=== PATIENT | female | born 1965 | race Caucasian/White ===

== ENCOUNTER 2024-12-31 22:09 | Emergency (ER) | payer BC, SELFPAY ==
--- OUTSIDE RECORDS SUMMARY | 2024-12-31 22:11 | XMS_ITS | Clinical Summary ---
Author Organization [facility] Address [address] [address] Phone Care Team Providers Care Software Configuration Specialist Name Role Phone Unavailable Primary Care Provider Unavailabl e Allergies No known active allergies Medications Alendronate Sodium (FOSAMAX OR) Take by mouth every seven days. 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 Gender Identity Not on file Sexual Orientation Not on file Last Filed Vital Signs Vital Sign Reading Time Taken Comments Blood Pressure 131/74 10/16/2020 12:20 PM TELEPHONE INSTALLER Pulse 77 10/16/2020 12:20 PM TELEPHONE INSTALLER Temperature 36.6 C (97.9 F) 10/16/2020 12:20 PM TELEPHONE INSTALLER Respiratory Rate 14 10/16/2020 12:20 PM TELEPHONE INSTALLER Oxygen Saturation 100% 10/16/2020 12:20 PM TELEPHONE INSTALLER Inhaled Oxygen Concentration - - Weight 49.9 kg (110 lb) 10/16/2020 12:20 PM TELEPHONE INSTALLER Height 160 cm (5' 3) 10/16/2020 12:20 PM TELEPHONE INSTALLER Body Mass Index 19.49 10/16/2020 12:20 PM TELEPHONE INSTALLER Plan of Treatment Health Maintenance Due Date Last Done Comments CT Colonography 1963 Cervical Cancer Screening 1963 Cologuard 1963 Colonoscopy 1963 Colorectal Cancer Screening 1963 FIT/FOBT 1963 Last pap w/ HPV Testing 1963 Last pap w/o HPV Testing 1963 MAMMO,SCREEN 1963 Sigmoidoscopy 1963 PERTUSSIS (Standing Order) 1982 TETANUS (Standing Order) 1982 Pneumococcal Vaccine: 50+ yr s (Standing Order) (1 of 1 - PCV) 2013 Shingrix (Zoster recombinant ) vaccine (Standing Order) (1 of 2) 2013 COVID-19 Vaccine (3 - 2023-2 5 season) 2024 11/13/2020, 10/16/2020 Influenza Vaccine Seasonal (Standing Order) (#1) 2024 RSV Vaccination (60+ yrs) (Abrysvo/Arexvy) (1 - 1-dose 75+ series) 2038 HPV Vaccine (Standing Order) Aged Out No longer eligible based on patient's age to complete this topic Hepatitis B Vaccine (Standin g Order) Aged Out No longer eligible b ased on patient's age to complete this topic Insurance lifeaction games CHOICE
--- OUTSIDE RECORDS SUMMARY | 2024-12-31 22:11 | XMS_ITS | Clinical Summary ---
Author Organization [facility] Address [address] [place] [id number] Care Team Providers Care Steam Trap Worker Name Role Phone Belem Butterfield MD Primary Care Provider Allergies No known active allergies Medications Calcium-Cholecal ciferol, D3, (CALCIUM 600 WITH VITAMIN D3) 600 mg(1,500mg) -400 unit cap Take by mouth. 0 10/18/2014 Active multivitamin (MVI) tablet Take 1 tablet by mouth once daily. 0 03/30/2017 Active Active Problems Problem Noted Date Diagnosed Date Adenomatous colon polyp 03/15/2015 Overview (04/25/2020): Colonoscopy 03/2015 polyp repeat in 5 years Colonoscopy 04/2020 normal, repeat in 5 years Disorder of bone and cartilage, unspecified 08/06 Overview (08/19/2007): Osteopenia 2000 Resolved Problems Problem Noted Date Diagnosed Date Resolved Date Acute myocardial infarction of other specified sites, episode of care unspecified 09/22/2011 09/22/2011 Assessment & Plan (09/22/2011 5:29 PM MEDICAL GENETICIST): error Immunizations Immunization Administration Dates Next Due AMB Influenza, IIV3 (Age >=3 years)(Flu Clinic O nly) 08/22/2008 AMB Influenza, IIV4 PF (=>6 mos Flulaval,Fluzone Fluarix)(Flu Clinic Only) 06/21/2020,06/15/2017 Influenza, IIV3 (Age >=3 years) 08/22/2008 Influenza, IIV4 06/07/2019,06/15/2017 MMR 06/16/2000 Td (Age >=7 Years) 07/06/2003 Tdap 05/17/2023,10/06/2012 Zoster (Shingrix-RZV, recombinant) 06/07/2019, Family History Medical History Relation Name Comments Osteoporosis Maternal Aunt Osteoporosis Maternal Grandmother Cancer Mother ovarian, diagno sed Cancer-breast No Family History Cancer-ovarian No Family History Relation Name Status Comments Maternal Aunt Maternal Grandmother Mother (Age 39) ovarian ca ncer Social History Tobacco Use Types Packs/Day Years Used Date Smoking Tobacco: Never Smokeless Tobacco: Never Tobacco Cessation:Counseling Given: Yes Alcohol Use Standard Drinks/Week Comments No 0 (1 standard drink = 0.6 oz pur e alcohol) PHQ-2 Answer Date Recorded PHQ-2 TOTAL SCORE 0 05/17/2023 Social Connections Answer Date Recorded Do you often feel lonely or isolated from those around you? 0 06/14/2024 Financial Resource Strain Answer Date R ecorded Difficulty of Paying Living Expenses 3 06/14/2024 Difficulty of Paying Living Expenses Not on file 06/14/2024 Food Insecurity Answer Date Recorded Do you worry your food will run out before you are able to buy more? 1 06/14/2024 Transportation Needs Answer Date Record ed Does lack of transportation keep you from medica l appointments? 1 06/14/2024 Does lack of transportation keep you from work, meetings or getting things that you need? 1 06/14/2024 Housing Stability Answer Date Recorded What is your housing situation today? 1 06/14/2024 Utilities Answer Date Recorded Do you have trouble paying f or utilities (for example, heat, electricity, water, phone)? 1 06/14/2024 Comments No Sex and Gender Information Value Date Recorded Sex Assigned at Not on file Legal Sex Female 6:06 AM MEDICAL GENETICIST Gender Identity Not on file Sexual Orientation Not on file Occupation Industry Job Start Date Job End Date Not on file Not on file Not on file Not on file Obstetrics History Para Term AB IAB SAB Ectopic Multiple Livin g Live Births 3 3 Date Outcome GA Total Labor Labor/2nd/3rd Weight Sex Type Anes PTL Bella A1 A5 Name Clin Last Filed Vital Signs Vital Sign Reading Time Taken Comments Blood Pressure 100/63 06/14/2024 4:09 PM CDT Pulse 64 06/14/2024 4:09 PM CDT Temperature 36.7 C (98 F) 01/20/2019 3:36 PM CDT Respiratory Rate - - Oxygen Saturation 99% 06/14/2024 4:09 PM CDT Inhaled Oxygen Concentration - - Weight 47.6 kg (105 lb) 06/14/2024 4:09 PM CDT Height 160 cm (5' 3) 06/14/2024 4:09 PM CDT Body Mass Index 18.6 06/14/2024 4:09 PM CDT Plan of Treatment Health Maintenance Due Date Last Done Comments Pneumococcal series for age 50+ (1 of 1 - PCV) 2013 COVID-19 vaccine series ( season) 2024 11/13/2020, 10/16/2020 Depression screening for age 12+ 05/17/2024 05/17/2023, 04/06/2022, 03/27/2021, Additional history exists Pap test for age 21-65 04/02/2025 , 04/02/2020, 12/22/2016, Additional history exists Colonoscopy through age 75 04/23/202504/23, 04/23/2020, 04/23/2020, Additional history exists Influenza Vaccine (Season Ended) 2025 06/21/2020, 06/07/2019, 06/15/2017, Additional history exists BMI (ht and wt on same day) for age 18+ 06/14/2025 06/14/2024, 05/17/2023, 04/06/2022, Additional history exists Mammogram for age 45-75 06/14/2025 06/14/20, 05/17/2023, 04/17/2022, Additional history exists Lipids for age 45-75 06/14/2029 06/14/2024, 02/10/2019, 09/29/2011 Tetanus booster 05/17/2033 05/17/2023, 09/08, 07/06/2003 RSV vaccine for adults or (1 - 1-dose 75+ series) 2038 Zoster (shingles) series for age 50+ Completed 06/07/2019, 01/20/2019 Tdap Completed 05/17/2023, 10/06/2012 HIV for age 15-65 Completed 06/14/2024 Hepatitis C screening for ag e 18-79 Completed 06/14/2024 Procedures Procedure Name Priority Date/Time Associated Diagnosis Comments HIV 1/2 ANTIGEN/ANTIBODY FOURTH GENERATION W/RFL ([facility]) Routine 06/14/2024 4:50 PM CDT Encounter for screening for HIV ANTI HCV Routine 06/14/2024 4:50 PM CDT Need for hepatitis C screening test LIPID PANEL W REFLEX MEASURED LDL Routine 06/14/2024 4:50 PM CDT Screening for lipid disorders XR MAMMO BILAT SCREENING Routine 06/14/2024 3:42 PM CDT Visit for screening mammogram COLONOSCOPY SCREENING Routine 04/23/2020 9:26 AM CDT History of colon polyps SEAMER ELASTIC BAND THIN PREP PAP SCREEN IMAGED Routine 04/02/2020 8:15 AM CDT Cervical cancer screening from Last 3 Months or Most Recently Relevant to Health Maintenance Results * HIV 1/2 ANTIGEN/ANTIBODY FOURTH GENERATION W/RFL ([facility]) (06/14/2024 4:50 PM CDT) HIV AG/AB, 4TH GEN NON-REACT DORIAN NON-REACT DORIAN [facility] Comment: HIV-1 antigen and HIV-1/HIV-2 antibodies were not detected. There is no laboratory evidence of HIV infection. PLEASE NOTE: This information has been disclosed to you from records whose confidentiality may be protected by state law. If your state requires such protection, then the state law prohibits you from making any further disclosure of the information without the specific written consent of the person to whom it pertains, or as otherwise permitted by law. A general authorization for the release of medical or other information is NOT sufficient for this purpose. For additional information please refer to http://education.[employer]/faq/CJK401 (This link is being provided for informational/ educational purposes only.) The performance of this assay has not been clinically validated in patients less than 2 years old. Blood BLOOD SPECIMEN / Unknown 06/14/2024 4:50 PM CDT 06/14/2024 4:51 PM CDT Belem Butterfield MD SEND OUTS Final R esult [facility] [address] [place] [address], [facility] [address] [place] [address] * LIPID PANEL W REFLEX MEASURED LDL [IIY9130] (06/14/2024 4:50 PM CDT) CHOLESTEROL, TOTAL 169 <200 mg/dL [facility] HDL CHOLESTEROL 66 > OR = 50 mg/dL [facility] TRIGLYCERIDES 87 <150 mg/dL [facility] LDL-CHOLESTEROL 85 mg/dL (calc) [facility] Comment: Reference range: <100 Desirable range <100 mg/dL for primary prevention; <70 mg/dL for patients with CHD or diabetic patients with > or = 2 CHD risk factors. LDL-C is now calculated using the Gurjit-Radha calculation, which is a validated novel method providing better accuracy than the Friedewald equation in the estimation of LDL-C. Gurjit SS et al. URBANO. 2013;310(19): 3108-1190 (http://education.[employer]/faq/JAC921) CHOL/HDLC RATIO 2.6 <5.0 (calc) [facility] NON HDL CHOLESTEROL 103 <130 mg/dL (calc) [facility] Comment: For patients with diabetes plus 1 major ASCVD risk factor, treating to a non-HDL-C goal of <100 mg/dL (LDL-C of <70 mg/dL) is considered a therapeutic option. Blood BLOOD SPECIMEN / Unknown 06/14/2024 4:50 PM CDT 06/14/2024 4:51 PM CDT Belem Butterfield MD CHEMISTRY Final R esult Performing Organization Address City/[facility]/ZIP Co de Phone Number [facility] [address] [place] [address], [place] [phone] [facility] [address] [place] [address] * ANTI HCV (06/14/2024 4:50 PM CDT) HEPATITIS C ANTIBODY NON-REACTI VE NON-REACT DORIAN [facility] Comment: HCV antibody was non-reactive. There is no laboratory evidence of HCV infection. In most cases, no further action is required. However, if recent HCV exposure is suspected, a test for HCV RNA (test code 45003) is suggested. For additional information please refer to http://education.[employer]/faq/TOR66v1 (This link is being provided for informational/ educational purposes only.) Blood BLOOD SPECIMEN / Unknown 06/14/2024 4:50 PM CDT 06/14/2024 4:51 PM CDT Belem Butterfield MD SEND OUTS Final R esult Performing Organization Address City/[facility] Co de Phone Number [facility] [address] [place] [address], [place] [phone] [facility] [address] [place] [address] * XR MAMMO BILAT SCREENING (06/14/2024 3:42 PM CDT) Anatomical Region Laterality Modality BREASTS, Breast Left, Breast Right Bilateral Mammography Impressions 06/15/2024 2:16 PM CDT There is no radiographic evidence for malignancy. Recommend annual mammograms. MAMMOGRAM ASSESSMENT: ACR 1 Negative PATIENTS: You will also receive a letter with your examination results in an easy to read format. If you have questions about your results, please contact your referring provider. Narrative 06/15/2024 2:16 PM CDT For Patients: As a result of the Century Cures Act, medical imaging exams and procedure reports are released immediately into your electronic medical record. You may view this report before your referring provider. If you have questions, please contact your health care provider. XR MAMMO BILAT SCREENING [[id number]] CLINICAL HISTORY: This is an asymptomatic 59 y.o. patient. INDICATION FOR EXAM: Mammogram Screening. TECHNIQUE: CC & MLO views were obtained. This study was evaluated with the assistance of Computer-Aided Detection. COMPARISON FILM: Yes 05/17/23 Tattoodo 04/17/22 Tattoodo FINDINGS: There are scattered areas of fibroglandular density. There are no dominant masses, suspicious micro calcifications or areas of architectural distortion. Belem Butterfield MD MAMMO Final R esult * COLONOSCOPY SCREENING (04/23/2020 9:26 AM CDT) Belem Butterfield MD GI PROCEDURE ORD Final Result * SEAMER ELASTIC BAND THIN PREP PAP SCREEN IMAGED (04/02/2020 8:15 AM CDT) Case Report Gynecologic Cytology Report Case: [id number] Authorizing Provider: Belem Butterfield MD Collected: 04/02/2020 0815 Ordering Location: [facility] Received: 04/02/2020 0927 Clinic First Screen: Carol Ann Gonzalez Specimen: SEAMER ELASTIC BAND ThinPrep Vial Screening, Cervical 04/09/2020 10:25 AM CDT [facility] INTERPRETATION/ RESULT NEGATIVE FOR INTRAEPITHELIAL LESION OR MALIGNANCY (NIL) (none) 04/09/2020 10:25 AM CDT [facility] at 1025 CDT SPECIMEN ADEQUACY Satisfactory for evaluation Endocervical component present Scant cellularity 04/09/2020 10:25 AM CDT [facility] HPV REQUEST HPV and PAP 04/09/2020 10:25 AM CDT [facility] Date of LMP 2017 04/09/2020 10:25 AM CDT [facility] Last Pap Date 12/22/16 04/09/2020 10:25 AM CDT [facility] Last Pap Result NIL 0 10:25 AM CDT [facility] Abnormal Pap or Hannacroix Bx in last 5 years No 04/09/2020 10:25 AM CDT [facility] Menstrual Status Postmenopausal 04/09/2020 10:25 AM CDT [facility] Hannacroix Bx Done Today No 04/09/2020 10:25 AM CDT [facility] Additional Information None given 04/09/2020 10:25 AM CDT [facility] Comment: Cytology is screened at [facility] - [address], [place] [address] and [facility] - [address], [place] [address] and [facility] - [address] [place] [address] Interpreted at [facility] - [address], [place] [address] Automated Review Successful 04/09/2020 10:25 AM CDT [facility] Comment:Specimen processed s uccessfully by automated business analytics director device, ThinPrep Imaging System, [employer] ANCILLARY TESTING SEAMER ELASTIC BAND HPV Ordered, Please see separate report 04/09/2020 10:25 AM CDT [facility] Note The pap test is a screening technique, not a diagnostic procedure. It is used primarily to screen for squamous cancers and precursor lesions. Published studies have shown that it is subject to both false negative and false positive results. The pap test should not be used as the sole means to diagnose or exclude pre-malignant and malignant lesions. 04/09/2020 10:25 AM CDT [facility] Other (Cervical) Non-Blood / Unknown 04/02/2020 8:15 AM CDT 04/02/2020 9:27 AM CDT Belem Butterfield MD PATHOLOGY/CYTOLOGY Tanika l Result [facility] [address] [place] [address], [place] from Last 3 Months or Most Recently Relevant to Health Maintenance Insurance [facility] [employer] CAYLA PARIKH, DANICA [id number] Care Teams Steam Trap Worker Relationship Specialty Start Date End Date Belem Butterfield MD [address] [place] [address] PCP - General Family Practice 03/27/21
[2024-12-31 22:12] VITALS: BP 120/67; PULSE 77; RESP 16; TEMP 36.8; O2SAT 98; BMI 18.6
--- NOTE | 2024-12-31 22:16 | CRLHL7_ITS ---
For Patients: As a result of the Cures Act, medical imaging exams and procedure reports are released immediately into your electronic medical record. You may view this report before your referring provider. If you have questions, please contact your health care provider. Indication: Trauma. Technique: Left ankle, 3 views. Comparison: None. Findings: Bones: Alignment is normal. No fractures or bone lesions. Joint spaces: Unremarkable. Soft tissues: Soft tissue swelling surrounding the ankle.. Impression: No acute fractures or dislocations. Soft tissue swelling. Dictated by Brant Waller MD @ 12/31/2024 10:47:42 PM (Electronically Signed)
--- NOTE | 2024-12-31 22:18 | ED.GENADULT ---
[facility] - General Adult General Date Seen: 12/31/24 Chief complaint: Extremity Pain/Injury, Lower Stated complaint: Left ankle injury, fall Time Seen by Provider: 12/31/24 22:13 Source: patient Mode of arrival: ambulatory Limitations: no limitations History of Present Illness HPI narrative: Patient is a 59-year-old female with left ankle pain. He states around 20:15 she stepped off a curb and twisted her ankle. She now has pain and swelling to lateral malleolus. They tried to ice it but swelling was not going down. Has not take anything yet for pain. Denies any numbness or weakness. Denies any other injuries. No other concerns noted. Related Data Previous Rx's ?Medication ?Instructions ?Recorded azithromycin 250 mg tablet See Rx Instructions PO .COMPLEX #6 01/28/24 tabs benzonatate 200 mg capsule 200 mg PO BID PRN cough #10 caps 01/28/24 Allergies Allergy/AdvReac Type Severity Reaction Status Date / Time No Known Drug Allergies Allergy Verified 01/28/24 14:16 Review of Systems Narrative: Pertinent systems reviewed and were negative unless stated in HPI PFSH PFSH Social History Smoking Status: Never smoker Do you use any of these nicotine containing products: None How often do you have a drink containing alcohol: never AUDIT-C Alcohol total score: 0 Non-prescribed substance use: denies use Exam Narrative: Exam Narrative: Const: Well-nourished, Well-developed, in mild distress Eyes: PERRL, no conjunctival injection, and symmetrical lids HENT: Atraumatic external nose and ears. Moist mucous membranes. CV: Cap refill under 3 seconds bilateral lower extremities, dorsalis pedis pulse +2 bilateral lower extremity MSK: Tenderness to palpation and swelling noted all around the lateral malleolus. No tenderness noted to foot, knee, hip on the left side. No other injuries. Skin: Warm, Dry. No rashes or lesions. Neuro: Normal Muscle tone, No focal neurological deficits. Psych: Awake, Alert, & Oriented x3. Appropriate mood and affect. Const: Vital Signs, click to edit/add: Vital Signs - 24 hr 12/31/24 22:12 Temperature 98.2 F Pulse Rate [Left P ulse Oximeter] 77 Respiratory Rate 16 Blood Pressure [Ri ght Upper Arm] 120/67 Pulse Oximetry 98 Oxygen Delivery Me thod Room Air Course Vital Signs Vital signs: Initial Vital Signs Temperature 98.2 F 12/31/24 22:12 Temperature Source Temporal Artery Scan 12/31/24 22:12 Pulse Rate 77 12/31/24 22:12 Pulse Rhythm Regular 12/31/24 22:12 Respiratory Rate 16 12/31/24 22:12 Blood Pressure 120/67 12/31/24 22:12 Blood Pressure Mean 84 12/31/24 22:12 Blood Pressure Position Sitting 12/31/24 22:12 Pulse Oximetry 98 12/31/24 22:12 Oxygen Delivery Method Room Air 12/31/24 22:12 Vital Signs Temperature 98.2 F 12/31/24 22:12 Pulse Rate 77 12/31/24 22:12 Respiratory Rate 16 12/31/24 22:12 Blood Pressure 120/67 12/31/24 22:12 Pulse Oximetry 98 12/31/24 22:12 Oxygen Delivery Method Room Air 12/31/24 22:12 Temperature 98.2 F 12/31/24 22:12 Pulse Rate 77 12/31/24 22:12 Respiratory Rate 16 12/31/24 22:12 Blood Pressure 120/67 12/31/24 22:12 Pulse Oximetry 98 12/31/24 22:12 Oxygen Delivery Method Room Air 12/31/24 22:12 Medical Decision Making MDM Narrative Medical decision making narrative: Patient is a 59-year-old female presenting for left ankle pain. She is neurovascular intact at this time. Will do an x-ray of the ankle to the for fractures. X-ray reviewed by myself and the radiologist shows no acute concerning abnormalities. She still neurovascular intact. She will be discharged at this time. Likely has an ankle sprain. Discharge Plan Discharge Clinical Impression: Ankle sprain and strain Patient Disposition: Home, Self-Care Condition: Stable Instructions: Ankle Sprain (DC) Additional Instructions: Take Tylenol and ibuprofen for pain. You can weight bear as tolerated. Return to emergency department for new or worsening symptoms. Prescriptions: No Action azithromycin 250 mg tablet See Rx Instructions PO .COMPLEX Qty: 6 0RF Rx Instructions: For 250 mg dose pack: take 500 mg today (day 1), then 250 mg for 4 days (days 2-5) PO benzonatate 200 mg capsule 200 mg PO BID PRN (Reason: cough) Qty: 10 0RF Follow Up/Referrals: Joaquim Sheridan MD [Staff Physician] - Stand Alone Forms: [employer] Info Instructions
--- OUTSIDE RECORDS SUMMARY | 2024-12-31 22:42 | XMS_ITS | Clinical Summary ---
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): error Immunizations Immunization Administration Dates Next Due [...] on file Legal Sex Female 6:06 AM BULK SUGAR HANDLER Gender Identity Not on file Sexual Orientation [...] 9:26 AM CDT History of colon polyps MECHANICAL CAR CHECKER THIN PREP PAP SCREEN IMAGED Routine 04/02/2020 8:15 AM CDT Cervical cancer screening from Last 3 Months or Most Recently Relevant to Health Maintenance Results * HIV 1/2 ANTIGEN/ANTIBODY FOURTH GENERATION W/RFL (QUEST) (06/14/2024 4:50 PM CDT) HIV AG/AB, 4TH GEN NON-REACT DORIAN NON-REACT DORIAN [facility] Comment: HIV-1 antigen and HIV-1/HIV-2 antibodies were [...] purpose. For additional information please refer to http://education.[employer]/faq/ZCQ599 (This link is being provided for informational/ educational purposes only.) The performance of this assay has not been clinically validated in patients less than 2 years old. Blood BLOOD SPECIMEN / Unknown 06/14/2024 4:50 PM CDT 06/14/2024 4:51 PM CDT Belem Butterfield MD SEND OUTS Final R esult [facility] [address] [place] [address], [facility] [address] [place] [address] * LIPID PANEL W REFLEX MEASURED LDL [[id number]] (06/14/2024 4:50 PM CDT) CHOLESTEROL, TOTAL 169 <200 mg/dL [facility] HDL CHOLESTEROL 66 > OR = 50 mg/dL [facility] TRIGLYCERIDES 87 <150 mg/dL [facility] LDL-CHOLESTEROL 85 mg/dL (calc) [facility] Comment: Reference range: <100 Desirable range <100 mg/dL for primary prevention; <70 mg/dL for patients with CHD or diabetic patients with > or = 2 CHD risk factors. LDL-C is now calculated using the Gurjit-Radha calculation, which is a validated novel method providing better accuracy than the Friedewald equation in the estimation of LDL-C. Gurjit SS et al. URBANO. 2013;310(19): 3808-6253 (http://education.[employer]/faq/TTW405) CHOL/HDLC RATIO 2.6 <5.0 (calc) [facility] NON HDL CHOLESTEROL 103 [...] CHEMISTRY Final R esult Performing Organization Address City/[facility]/ZIP Co de Phone Number [employer] [facility] [address] [place] [address], [place] [phone] [facility] [address] [place] [address] * ANTI HCV (06/14/2024 4:50 PM CDT) HEPATITIS C ANTIBODY NON-REACTI VE NON-REACT DORIAN [facility] Comment: HCV antibody was non-reactive. There is no laboratory evidence of HCV infection. In most cases, no further action is required. However, if recent HCV exposure is suspected, a test for HCV RNA (test code 03888) is suggested. For additional information please refer to http://education.[employer]/faq/FYE49u7 (This link is being provided for informational/ educational purposes only.) Blood BLOOD SPECIMEN / Unknown 06/14/2024 4:50 PM CDT 06/14/2024 4:51 PM CDT Belem Butterfield MD SEND OUTS Final R esult Performing Organization Address City/[facility] Co de Phone Number [employer] [facility] [address] [place] [address], [place] [phone] [facility] [employer] [address] [place] [address] * XR MAMMO BILAT SCREENING (06/14/2024 3:42 [...] health care provider. XR MAMMO BILAT SCREENING [[id number]] CLINICAL HISTORY: This is an asymptomatic 59 y.o. patient. INDICATION FOR EXAM: Mammogram Screening. TECHNIQUE: CC & MLO views were obtained. This study was evaluated with the assistance of Computer-Aided Detection. COMPARISON FILM: Yes 05/17/23 [employer] 04/17/22 [employer] FINDINGS: There are scattered areas of fibroglandular density. There are no dominant masses, suspicious micro calcifications or areas of architectural distortion. Belem Butterfield MD MAMMO Final R esult * COLONOSCOPY SCREENING (04/23/2020 9:26 AM CDT) Belem Butterfield MD GI PROCEDURE ORD Final Result * MECHANICAL CAR CHECKER THIN PREP PAP SCREEN IMAGED (04/02/2020 8:15 AM CDT) Case Report Gynecologic Cytology Report Case: [id number] Authorizing Provider: Belem Butterfield MD Collected: 04/02/2020 0815 Ordering Location: [facility] Received: 04/02/2020 0927 Clinic First Screen: Carol Ann Gonzalez Specimen: MECHANICAL CAR CHECKER ThinPrep Vial Screening, Cervical 04/09/2020 10:25 AM CDT [facility] INTERPRETATION/ RESULT NEGATIVE FOR INTRAEPITHELIAL LESION OR MALIGNANCY (NIL) (none) 04/09/2020 10:25 AM CDT [facility] at 1025 CDT SPECIMEN ADEQUACY Satisfactory for evaluation Endocervical component present Scant cellularity 04/09/2020 10:25 AM CDT [facility] HPV REQUEST HPV and PAP 04/09/2020 10:25 AM CDT [facility] Date of LMP 2017 04/09/2020 10:25 AM CDT [facility] Last Pap Date 12/22/16 04/09/2020 10:25 AM CDT [facility] Last Pap Result NIL 0 10:25 AM CDT [facility] Abnormal Pap or Monon Bx in last 5 years No 04/09/2020 10:25 AM CDT [facility] Menstrual Status Postmenopausal 04/09/2020 10:25 AM CDT [facility] Monon Bx Done Today No 04/09/2020 10:25 AM CDT [facility] Additional Information None given 04/09/2020 10:25 AM CDT [facility] Comment: Cytology is screened at [facility] - [address], [place] [address] and [facility] - [address], [place] [address] and [facility] - [address] [place] [address] Interpreted at [facility] - [address], [place] [address] Automated Review Successful 04/09/2020 10:25 AM CDT [facility] Comment:Specimen processed s uccessfully by automated celery tier device, ThinPrep Imaging System, [employer] ANCILLARY TESTING MECHANICAL CAR CHECKER HPV Ordered, Please see separate report 04/09/2020 10:25 AM CDT [facility] Note The pap test is a [...] and malignant lesions. 04/09/2020 10:25 AM CDT [facility] Other (Cervical) Non-Blood / Unknown 04/02/2020 8:15 AM CDT 04/02/2020 9:27 AM CDT Belem Butterfield MD PATHOLOGY/CYTOLOGY Tanika l Result [facility] [address] [place] [address], [place] from Last 3 Months or Most Recently Relevant to Health Maintenance Insurance [facility] [employer] [employer] CAYLA PARIKH, DANICA [phone] Care Teams Biostatistics Director Relationship Specialty Start Date End Date Belem Butterfield MD [address] [place] [address] PCP - General Family Practice 03/27/21
--- OUTSIDE RECORDS SUMMARY | 2024-12-31 22:43 | XMS_ITS | Clinical Summary ---
Author Organization [facility] Address [address] [address] Phone Care Team Providers Care Relay Tester Helper Name Role Phone Unavailable Primary Care Provider Unavailabl e Allergies No known active allergies Medications Alendronate Sodium (FOSAMAX OR) Take by mouth every seven days. Active Social History Tobacco Use Types Packs/Day Years Used Date Smoking Tobacco: Never Assessed Comments No Sex and Gender Information Value Date Recorded Sex Assigned at Not on file Legal Sex Female 8:26 PM TREASURER Gender Identity Not on file Sexual Orientation Not on file Last Filed Vital Signs Vital Sign Reading Time Taken Comments Blood Pressure 131/74 10/16/2020 12:20 PM TREASURER Pulse 77 10/16/2020 12:20 PM TREASURER Temperature 36.6 C (97.9 F) 10/16/2020 12:20 PM TREASURER Respiratory Rate 14 10/16/2020 12:20 PM TREASURER Oxygen Saturation 100% 10/16/2020 12:20 PM TREASURER Inhaled Oxygen Concentration - - Weight 49.9 kg (110 lb) 10/16/2020 12:20 PM TREASURER Height 160 cm (5' 3) 10/16/2020 12:20 PM TREASURER Body Mass Index 19.49 10/16/2020 12:20 PM TREASURER Plan of Treatment Health Maintenance Due Date [...] patient's age to complete this topic Insurance [employer] CHOICE
--- NOTE | 2024-12-31 23:07 | ED.NURSE ---
pt offered ankle brace and wrap. pt stated she has same supplies at home already and did not want any.
== END 2024-12-31 23:07 | disposition home or self-care (01) ==
PROVIDERS: Emergency Provider Student in an Organized Health Care Education/Training Program; PCP Family Medicine
DX: S93.402A Sprain of unspecified ligament of left ankle, initial encounter (principal); X50.1XXA Overexertion from prolonged static or awkward postures, initial encounter
CPT/HCPCS: 73610; 99283